=== PATIENT | female | born 1955 | race Caucasian/White ===

== ENCOUNTER → 2023-08-23 12:48 | Outpatient (REF) | payer MEDICARE, SELFPAY | LOC: RAD 12:48 | PROVIDERS: ATTENDING PHYSICIAN Family Medicine | DX: M85.89 Other specified disorders of bone density and structure, multiple sites (principal) | CPT/HCPCS: 77080 ==

== ENCOUNTER → 2023-09-16 15:59 | Outpatient (REF) | payer MEDICARE, SELFPAY ==
[2023-09-16 19:02] LABS: Urine Albumin Negative (Neg - Trace); Urine Bilirubin Negative (Negative); Urine Character Clear (Clear); Urine Color Yellow; Urine Glucose Negative (Negative); Urine Ketone Negative (Negative); Urine Leukocyte Trace (Negative); Urine Nitrite Negative (Negative); Urine Occult Blood 1+ (Negative); Urine Urobilinogen Negative (Neg - 1+)
[2023-09-16 19:14] LABS: Urine Bacteria Many (Negative)
[2023-09-16 19:15] LABS: Urine Amorphous Seen
== END ==
LOC: CLAB 15:59
PROVIDERS: ATTENDING PHYSICIAN Family Medicine
DX: N30.90 Cystitis, unspecified without hematuria (principal)
CPT/HCPCS: 81003; 81015; 87077; 87086; 87186

== ENCOUNTER → 2023-11-02 07:39 | Outpatient (REF) | payer MEDICARE, SELFPAY ==
[2023-11-02 09:03] LABS: % Basophils 0.7 % (0-2); % Eosinophils 2.8 % (0-6); % Immature Granulocytes 0.5 % (0-0.5); % Lymphocytes 11.5 % (20.5-51.1); % Monocytes 8.2 % (1.7-9.3); % Neutrophils 76.3 % (42.2-75.2); Absolute Basophils 0.1 10^3/uL (0-0.2); Absolute Eosinophils 0.2 10^3/uL (0-0.7); Absolute Monocytes 0.7 10^3/uL (0.1-0.6); Absolute Neutrophils 6.7 10^3/uL (1.4-6.5); Hematocrit 40.2 % (37.0-47.0); Hemoglobin 13.5 g/dL (12.0-16.0); Mean Corp Hgb Conc. 33.6 g/dL (33.0-37.0); Mean Corpuscular Hgb 28.4 pg (27.0-31.0); Mean Corpuscular Volume 84.5 fL (81.0-99.0); Nucleated Red Blood Cells % 0 %; Platelet Count 168 10^3/uL (130-400); Red Blood Cell Count 4.76 10^6/uL (4.20-5.40); Red Cell Dist. Width 13.5 % (11.5-14.5); White Blood Cell Count 8.7 10^3/uL (4.8-10.8)
[2023-11-02 09:27] LABS: ALT (SGPT) 25 U/L (0-35); AST (SGOT) 27 U/L (14-36); Albumin 4.2 g/dl (3.5-5.0); Alkaline Phosphatase 92 U/L (38-126); Blood Urea Nitrogen 15 mg/dl (7-17); Calcium 9.8 mg/dl (8.4-10.2); Carbon Dioxide 22 mmol/L (22-30); Chloride 106 mmol/L (98-107); Direct Bilirubin 0.2 mg/dl (0.0-0.4); Glucose 141 mg/dl (70-99); Iron 106 ug/dl (37-170); Phosphorus 4.3 mg/dl (2.5-4.5); Potassium 4.2 mmol/L (3.5-5.1); Sodium 136 mmol/L (135-145); Total Bilirubin 0.7 mg/dl (0.2-1.3); Total Cholesterol 161 mg/dl (50-199); Total Protein 7.2 g/dl (6.3-8.2); Triglyceride 189 mg/dl (10-149); Very Low Density Lipoprotein 37 mg/dl (0-30); eGFR > 60.00
[2023-11-02 09:31] LABS: Glycohemoglobin (HgbA1c) 7.6 % (4.0-5.6)
[2023-11-02 09:36] LABS: Percent Saturation 31 % (20-50); Total Iron Binding Capacity 337 ug/dl (265-497)
[2023-11-02 09:41] LABS: HDL Cholesterol 50 mg/dl; LDL Cholesterol, Calculated 74 mg/dl
[2023-11-02 09:51] LABS: Microalbumin, Random Urine 0.8 mg/dl (0.6-1.7); Microalbumin/creatinine Ratio 5.4 mg/g
[2023-11-04 09:33] LABS: Calprotectin, Fecal 199 ug/g (<=49)
== END ==
LOC: REG 07:39
PROVIDERS: ATTENDING PHYSICIAN Family Medicine; REFERRING PHYSICIAN Internal Medicine Gastroenterology
DX: E11.59 Type 2 diabetes mellitus with other circulatory complications (principal); K50.113 Crohn's disease of large intestine with fistula; E78.2 Mixed hyperlipidemia; D50.9 Iron deficiency anemia, unspecified
CPT/HCPCS: 80053; 80061; 82043; 82248; 82570; 82728; 83036; 83540; 83550; 83993; 84100; 85025

== ENCOUNTER → 2023-11-30 07:43 | Outpatient (REF) | payer MEDICARE, SELFPAY ==
[2023-11-30 09:21] LABS: C-Reactive Protein < 5.00 mg/L (0.0-10.00)
[2023-11-30 09:42] LABS: Erythrocyte Sed Rate 20 mm/hour (0-20)
[2023-11-30 09:57] LABS: Hepatitis B Surface Antigen Negative (Negative)
[2023-11-30 10:11] LABS: Vitamin B12 745 pg/ml (239-931)
[2023-11-30 10:15] LABS: Hepatitis B Core Ab, Total Negative (Negative)
[2023-11-30 11:19] LABS: Hepatitis B Surface Antibody Negative
== END ==
LOC: REG 07:43
PROVIDERS: ATTENDING PHYSICIAN Internal Medicine Gastroenterology; FAMILY PHYSICIAN Family Medicine
DX: K50.113 Crohn's disease of large intestine with fistula (principal); K50.90 Crohn's disease, unspecified, without complications
CPT/HCPCS: 36415; 82607; 82652; 82728; 85652; 86140; 86704; 86706; 87340

== ENCOUNTER → 2023-12-08 07:41 | Outpatient (REF) | payer MEDICARE, SELFPAY | LOC: MRI 3T 07:41 | PROVIDERS: ATTENDING PHYSICIAN Internal Medicine Gastroenterology; FAMILY PHYSICIAN Family Medicine | DX: K50.113 Crohn's disease of large intestine with fistula (principal) | CPT/HCPCS: 72197; 74183; A9575 ==

== ENCOUNTER → 2024-01-06 13:02 | Outpatient (REF) | payer MEDICARE, SELFPAY | LOC: RAD 13:02 | PROVIDERS: ATTENDING PHYSICIAN Family Medicine | DX: E04.1 Nontoxic single thyroid nodule (principal) | CPT/HCPCS: 76536 ==

== ENCOUNTER → 2024-02-14 11:47 | Outpatient (REF) | payer MEDICARE, SELFPAY | LOC: WDC 11:47 | PROVIDERS: ATTENDING PHYSICIAN Obstetrics & Gynecology; FAMILY PHYSICIAN Family Medicine | DX: Z12.31 Encounter for screening mammogram for malignant neoplasm of breast (principal) | CPT/HCPCS: 77063; 77067 ==

== ENCOUNTER → 2024-04-04 08:13 | Outpatient (REF) | payer MEDICARE, SELFPAY ==
[2024-04-04 09:54] LABS: Glycohemoglobin (HgbA1c) 7.3 % (4.0-5.6)
[2024-04-04 10:29] LABS: ALT (SGPT) 23 U/L (0-35); AST (SGOT) 25 U/L (14-36); Albumin 4.1 g/dl (3.5-5.0); Alkaline Phosphatase 88 U/L (38-126); Blood Urea Nitrogen 19 mg/dl (7-17); Carbon Dioxide 25 mmol/L (22-30); Chloride 103 mmol/L (98-107); Glucose 144 mg/dl (70-99); HDL Cholesterol 48 mg/dl; LDL Cholesterol, Calculated 62 mg/dl; Potassium 4.2 mmol/L (3.5-5.1); Sodium 141 mmol/L (135-145); Total Bilirubin 0.5 mg/dl (0.2-1.3); Total Cholesterol 139 mg/dl (50-199); Total Protein 6.7 g/dl (6.3-8.2); Triglyceride 148 mg/dl (10-149); Very Low Density Lipoprotein 29 mg/dl (0-30); eGFR > 60.00
[2024-04-04 11:25] LABS: TSH 3.12 uIU/ml (0.47-4.68)
== END ==
LOC: REG 08:13
PROVIDERS: ATTENDING PHYSICIAN Family Medicine
DX: E04.1 Nontoxic single thyroid nodule (principal); E11.59 Type 2 diabetes mellitus with other circulatory complications; E78.2 Mixed hyperlipidemia
CPT/HCPCS: 36415; 80053; 80061; 83036; 84439; 84443

== ENCOUNTER → 2024-09-05 08:27 | Outpatient (REF) | payer MEDICARE, SELFPAY ==
[2024-09-05 09:08] LABS: Urine Albumin Negative (Neg - Trace); Urine Bilirubin Negative (Negative); Urine Character Clear (Clear); Urine Color Yellow; Urine Glucose Negative (Negative); Urine Ketone Negative (Negative); Urine Leukocyte Negative (Negative); Urine Nitrite Negative (Negative); Urine Occult Blood 2+ (Negative); Urine Urobilinogen Negative (Neg - 1+)
[2024-09-05 09:21] LABS: % Basophils 0.9 % (0-2); % Eosinophils 2.6 % (0-6); % Immature Granulocytes 0.6 % (0-0.5); % Lymphocytes 17.2 % (20.5-51.1); % Monocytes 9.9 % (1.7-9.3); % Neutrophils 68.8 % (42.2-75.2); Absolute Basophils 0.1 10^3/uL (0-0.2); Absolute Eosinophils 0.2 10^3/uL (0-0.7); Absolute Immature Granulocytes 0.1 10^3/uL (0-0.05); Absolute Lymphocytes 1.5 10^3/uL (1.2-3.4); Absolute Monocytes 0.9 10^3/uL (0.1-0.6); Hematocrit 43.4 % (37.0-47.0); Hemoglobin 14.4 g/dL (12.0-16.0); Mean Corp Hgb Conc. 33.2 g/dL (33.0-37.0); Mean Corpuscular Hgb 28.3 pg (27.0-31.0); Mean Corpuscular Volume 85.4 fL (81.0-99.0); Mean Platelet Volume 10.2 fL (7.4-10.4); Nucleated Red Blood Cells % 0 %; Platelet Count 252 10^3/uL (130-400); Red Blood Cell Count 5.08 10^6/uL (4.20-5.40); Red Cell Dist. Width 13.5 % (11.5-14.5); White Blood Cell Count 8.8 10^3/uL (4.8-10.8)
[2024-09-05 09:32] LABS: Urine Bacteria Few (Negative); Urine White Cell 0-2 /HPF (0-5)
[2024-09-05 09:56] LABS: ALT (SGPT) 23 U/L (0-35); AST (SGOT) 25 U/L (14-36); Albumin 4.3 g/dl (3.5-5.0); Alkaline Phosphatase 89 U/L (38-126); Blood Urea Nitrogen 17 mg/dl (7-17); Calcium 9.7 mg/dl (8.4-10.2); Carbon Dioxide 26 mmol/L (22-30); Chloride 100 mmol/L (98-107); Direct Bilirubin 0.2 mg/dl (0.0-0.4); Glucose 150 mg/dl (70-99); HDL Cholesterol 57 mg/dl; Iron 112 ug/dl (37-170); LDL Cholesterol, Calculated 71 mg/dl; Sodium 136 mmol/L (135-145); Total Bilirubin 0.9 mg/dl (0.2-1.3); Total Cholesterol 169 mg/dl (50-199); Total Protein 7.1 g/dl (6.3-8.2); Triglyceride 208 mg/dl (10-149); Very Low Density Lipoprotein 41 mg/dl (0-30); eGFR > 60.00
[2024-09-05 10:06] LABS: Percent Saturation 29 % (20-50); Total Iron Binding Capacity 376 ug/dl (265-497)
[2024-09-05 10:21] LABS: TSH Reflex To Free T4 2.82 uIU/ml (0.47-4.68)
[2024-09-05 10:25] LABS: Glycohemoglobin (HgbA1c) 7.8 % (4.0-5.6)
[2024-09-05 10:35] LABS: Vitamin D, 25-OH*** 39.3 ng/mL (30-80)
[2024-09-05 10:49] LABS: Microalbumin, Random Urine < 0.6 mg/dl (0.6-1.7)
== END ==
LOC: REG 08:27
PROVIDERS: ATTENDING PHYSICIAN Internal Medicine Gastroenterology; FAMILY PHYSICIAN Family Medicine
DX: K50.113 Crohn's disease of large intestine with fistula (principal); E04.1 Nontoxic single thyroid nodule; R31.29 Other microscopic hematuria; D50.8 Other iron deficiency anemias; E11.59 Type 2 diabetes mellitus with other circulatory complications; E78.2 Mixed hyperlipidemia; E55.9 Vitamin D deficiency, unspecified
CPT/HCPCS: 36415; 80053; 80061; 81003; 81015; 82043; 82248; 82306; 82728; 83036; 83540; 83550; 83993; 84443; 85025; 86140

== ENCOUNTER 2024-10-06 06:23 | Day surgery (SDC) | payer MEDICARE, SELFPAY ==
[2024-10-06 09:45] LABS: Glucose - Point of Care 154 mg/dl (70-99)
== END 2024-10-06 11:03 | disposition home or self-care (01) ==
LOC: GI 06:23
PROVIDERS: ATTENDING PHYSICIAN Internal Medicine Gastroenterology
DX: Z12.11 Encounter for screening for malignant neoplasm of colon (principal); K64.0 First degree hemorrhoids; K57.30 Diverticulosis of large intestine without perforation or abscess without bleeding; K62.89 Other specified diseases of anus and rectum; K50.10 Crohn's disease of large intestine without complications; K63.5 Polyp of colon; K63.9 Disease of intestine, unspecified; Z86.0100 Personal history of colon polyps, unspecified
CPT/HCPCS: 44389; 88305; 82962

== ENCOUNTER → 2024-12-01 08:14 | Outpatient (REF) | payer MEDICARE, SELFPAY | LOC: RCS 08:14 | PROVIDERS: ATTENDING PHYSICIAN Internal Medicine Cardiovascular Disease; FAMILY PHYSICIAN Family Medicine | DX: I49.3 Ventricular premature depolarization (principal); I10 Essential (primary) hypertension; I77.810 Thoracic aortic ectasia; I35.1 Nonrheumatic aortic (valve) insufficiency | CPT/HCPCS: 93306 ==

== ENCOUNTER → 2024-12-05 07:52 | Outpatient (REF) | payer MEDICARE, SELFPAY ==
[2024-12-05 08:43] LABS: % Basophils 0.8 % (0-2); % Eosinophils 2.3 % (0-6); % Immature Granulocytes 0.3 % (0-0.5); % Lymphocytes 14.5 % (20.5-51.1); % Monocytes 8.1 % (1.7-9.3); Absolute Basophils 0.1 10^3/uL (0-0.2); Absolute Eosinophils 0.2 10^3/uL (0-0.7); Absolute Lymphocytes 1.3 10^3/uL (1.2-3.4); Absolute Monocytes 0.8 10^3/uL (0.1-0.6); Absolute Neutrophils 6.8 10^3/uL (1.4-6.5); Hematocrit 41.1 % (37.0-47.0); Hemoglobin 13.7 g/dL (12.0-16.0); Mean Corp Hgb Conc. 33.3 g/dL (33.0-37.0); Mean Corpuscular Hgb 28.5 pg (27.0-31.0); Mean Corpuscular Volume 85.6 fL (81.0-99.0); Nucleated Red Blood Cells % 0 %; Platelet Count 249 10^3/uL (130-400); Red Cell Dist. Width 13.7 % (11.5-14.5); White Blood Cell Count 9.2 10^3/uL (4.8-10.8)
[2024-12-05 09:08] LABS: ALT (SGPT) 19 U/L (0-35); AST (SGOT) 20 U/L (14-36); Albumin 4.2 g/dl (3.5-5.0); Alkaline Phosphatase 76 U/L (38-126); Blood Urea Nitrogen 17 mg/dl (7-17); Calcium 10.1 mg/dl (8.4-10.2); Carbon Dioxide 28 mmol/L (22-30); Chloride 106 mmol/L (98-107); Glucose 158 mg/dl (70-99); Potassium 4.2 mmol/L (3.5-5.1); Sodium 141 mmol/L (135-145); Total Bilirubin 0.9 mg/dl (0.2-1.3); Total Protein 7.1 g/dl (6.3-8.2); eGFR > 60.00
[2024-12-05 09:44] LABS: TSH Reflex To Free T4 3.02 uIU/ml (0.47-4.68)
== END ==
LOC: REG 07:52
PROVIDERS: ATTENDING PHYSICIAN Internal Medicine Cardiovascular Disease; FAMILY PHYSICIAN Family Medicine; OTHER PHYSICIAN Internal Medicine Gastroenterology
DX: I49.3 Ventricular premature depolarization (principal); I10 Essential (primary) hypertension; I77.810 Thoracic aortic ectasia; R00.2 Palpitations; I35.1 Nonrheumatic aortic (valve) insufficiency; I48.91 Unspecified atrial fibrillation; K50.113 Crohn's disease of large intestine with fistula
CPT/HCPCS: 36415; 80053; 82248; 84100; 84443; 85025; 86140

== ENCOUNTER 2024-12-08 17:43 | Emergency (ER) | payer MEDICARE, SELFPAY ==
[2024-12-08 17:44] VITALS: BP 189/112
--- NOTE | 2024-12-08 18:02 | ED.GENMED ---
History of Present Illness
General
Chief Complaint: Rectal Bleeding
Source: patient
Exam Limitations: none
Time Seen by Provider: 12/08/24 17:48
History of Present Illness
History of Present Illness:
69yoF with a history of atrial fibrillation recently started on Eliquis 3 weeks ago, Crohn's disease with colostomy, and type 2 diabetes presenting for evaluation of dark stools. Patient has noticed black stools over the past 2 days. She also had
some minor rectal bleeding. She read the medication insert on her Eliquis and called her doctor regarding her symptoms. She was advised to come to the ED for evaluation. Patient reports intermittent episodes of shortness of breath over the past
few days. She denies any dyspnea currently. She is otherwise asymptomatic and denies any chest pain, abdominal pain, dizziness, syncope.
Past History
Past History
ED Past Medical History: Other (Crohns w/ bladder fistula)
ED Past Surgical History: Bowel resection
Social History
Tobacco: Non-smoker
Personal:
Living: with family
Employment: Employed
Phy Exam
General Physical Exam
General Presentation: well appearing and no apparent distress
General Skin: warm and dry
General Habitus: normal
General Mental: alert
ENT Exam
ENT Exam: normocephalic
Gastrointestinal Exam
Gastrointestinal Exam: non tender, soft, non distended and surgical scar
External Findings: colostomy (Stool in ostomy is brown/greenish in color. Hemoccult negative. )
Neurological Exam
Neurological Exam: alert
[place] Coma Scale
Eye Opening: Spontaneous
Verbal Response: Oriented
Motor Response: Obeys Commands
GCS Total Score: 15
Skin Exam
Skin Exam: normal color and warm/dry
Psychiatric Exam
Psychiatric Exam: normal mood/affect
Course
Orders/Labs/Results
Orders:
Orders
12/08/24 18:02
Electrocardiogram (*1) Urgent
Reason for Study: Shortness of Breath
EKG- Treatment ONCE
12/08/24 18:12
Complete Blood Count/With Diff Urgent
Comprehensive Metabolic Panel Urgent
PTT Urgent
Prothrombin Time Urgent
Troponin I Urgent
Abnormal Lab Results
12/08/24
18:12
Abs Immat Gran (auto) 0.1 H 10^3/uL
(0-0.05)
Absolute Monos (auto) 0.9 H 10^3/uL
(0.1-0.6)
Immature Gran % 0.6 H %
(0-0.5)
Lymphocytes % 18.1 L %
(20.5-51.1)
Monocytes % 10.2 H %
(1.7-9.3)
BUN 22 H mg/dl
(7-17)
Glucose 155 H mg/dl
(70-99)
12/08/24 18:12
12/08/24 18:12
Vital Signs
Initial and Last Documented VS:
Initial Vital Signs
Temp Pulse Resp BP Pulse Ox
97.6 F 79 15 189/112 98
12/08/24 17:44 12/08/24 17:44 12/08/24 17:44 12/08/24 17:44 12/08/24 17:44
Last Documented Vital Signs
Temp Pulse Resp BP Pulse Ox
97.6 F 73 20 150/73 99
12/08/24 17:44 12/08/24 19:30 12/08/24 19:30 12/08/24 19:09 12/08/24 19:30
MDM/Problems Addressed
Differential Diagnosis Includes:
69yoF here with dark stools x 2 days. C/o intermittent episodes of SOB but denies any dyspnea currently. Started on Eliquis 3 weeks ago for afib. No dizziness/syncope. She is hypertensive with otherwise normal vitals. She is well appearing in no
distress. Stool in ostomy bag is brown. Stool sample obtained and hemoccult is negative. Differential diagnosis includes but is not limited to: dark stool, GI bleed, medication side effect
Initial ED plan: Check cardiac labs, coags, and EKG.
*EKG
Interpreted by ED Provider?: Yes
EKG Intrepretation Date: 12/08/24
Heart Rate: 79
Rate: normal
Rhythm: sinus and PAC's
Venus: left axis deviation
Interval: normal interval
QRS Pattern: normal QRS
Ischemia: no ischemia
*Critical Care Note
Total Time (30-74mins, 75-104mins- exclusive of procedures): Not Applicable
Update Note
Update Note:
Hemoglobin is normal at 13.8 (stable from 13.7 three days ago). Remainder of labs unremarkable. EKG shows NSR with PACs. Troponin WNL. No indication for hospitalization. Advised f/u with PCP and GI. ED return precautions reviewed. Patient in
agreement with plan and is eager to be discharged. She was discharged in stable condition.
ED Attending Note
-
Portions of this chart may have been created with voice recognition software.� Occasional wrong word or��sound alike� substitutions may have occurred due to the inherent limitations of voice recognition software.
Discharge Plan
Departure
Patient Disposition: Home (Routine Discharge)
Date of Disposition: 12/08/24
Time of Disposition: 19:45
Patient with high blood pressure during this ER visit?: Yes
Discharge Problem:
Dark stools
Instructions: Bloody Stools, Adult ED
Prescriptions:
No Action
multivitamin [Multi-Day] 1 EACH tablet
1 tab PO DAILY
aspirin 81 MG tablet,chewable
1 tab PO DAILY
cholecalciferol (vitamin D3) 2,000 UNIT tablet
2,000 unit PO DAILY
lutein 20 MG tablet
1 tab PO DAILY
Probiotic
1 cap PO DAILY
ferrous sulfate [FeroSul] 325 MG tablet
65 mg PO DAILY
biotin 1 MG tablet
1 mg PO DAILY
glucosamine leigh 2KCl-chondroit [Glucosamine Sulf-Chondroitin] 1 EACH capsule
1 ea PO DAILY
acetaminophen 325 MG tablet
650 mg PO Q4HPRN PRN (Reason: headache)
Patient Comments:
ALSO TAKES PREMED FOR REMICADE
aspirin 325 MG tablet
650 mg PO PRN PRN (Reason: pain)
infliximab [Remicade] 100 MG/10 ML recon soln
100 mg IV .EVERY 8 WEEKS
losartan 25 MG tablet
25 mg PO DAILY
metoprolol tartrate 50 MG tablet
50 mg PO BID
misoprostol 200 MCG tablet
400 mcg PO HS
ibuprofen-diphenhydramine HCl [Ibuprofen PM] 1 EACH capsule
1 ea PO PRN PRN (Reason: sleep)
Referrals:
Lovely Cintron MD [Family Provider] -
Activity Restrictions/Additional Instructions:
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 Return to the ER with any new or worsening symptoms.
Interventions
Interventions:
*Risk Screen - Suicide Last Done: 12/08/24 17:44
*General Assessment Last Done: 12/08/24 17:44
*Neglect/Abuse Screening Last Done: 12/08/24 17:44
*ED- Fall Risk Assessment Last Done: 12/08/24 18:11
*ED COVID-19 Vaccine History Last Done: 12/08/24 18:11
*Nursing Disposition Last Done: 12/08/24 19:59
QT-Kupuxj-Cxyeqddkkf Assessment Last Done: 12/08/24 18:11
ED- Cardiac Assessment Last Done: 12/08/24 18:11
ED- Pulmonary Assessment Last Done: 12/08/24 18:11
Discharge Date and Time
Discharge Date/Time: 12/08/24 19:50
Print Language: WALLIS[place]
[2024-12-08 18:09] VITALS: BMI 33.6
[2024-12-08 18:13] VITALS: BP 152/89
[2024-12-08 18:22] LABS: % Basophils 0.8 % (0-2); % Eosinophils 2.7 % (0-6); % Immature Granulocytes 0.6 % (0-0.5); % Lymphocytes 18.1 % (20.5-51.1); % Monocytes 10.2 % (1.7-9.3); % Neutrophils 67.6 % (42.2-75.2); Absolute Basophils 0.1 10^3/uL (0-0.2); Absolute Eosinophils 0.2 10^3/uL (0-0.7); Absolute Immature Granulocytes 0.1 10^3/uL (0-0.05); Absolute Lymphocytes 1.6 10^3/uL (1.2-3.4); Absolute Monocytes 0.9 10^3/uL (0.1-0.6); Absolute Neutrophils 6.1 10^3/uL (1.4-6.5); Hematocrit 41.7 % (37.0-47.0); Hemoglobin 13.8 g/dL (12.0-16.0); Mean Corp Hgb Conc. 33.1 g/dL (33.0-37.0); Mean Corpuscular Hgb 28.8 pg (27.0-31.0); Mean Corpuscular Volume 87.1 fL (81.0-99.0); Mean Platelet Volume 9.5 fL (7.4-10.4); Nucleated Red Blood Cells % 0 %; Platelet Count 288 10^3/uL (130-400); Red Blood Cell Count 4.79 10^6/uL (4.20-5.40); Red Cell Dist. Width 13.6 % (11.5-14.5)
[2024-12-08 18:33] LABS: INR 1.07; PT 14.2 Sec (11.4-14.6)
[2024-12-08 18:34] LABS: APTT 30.2 Sec (23.4-35.0)
[2024-12-08 18:37] LABS: ALT (SGPT) 20 U/L (0-35); AST (SGOT) 22 U/L (14-36); Albumin 4.4 g/dl (3.5-5.0); Alkaline Phosphatase 84 U/L (38-126); Blood Urea Nitrogen 22 mg/dl (7-17); Calcium 9.9 mg/dl (8.4-10.2); Carbon Dioxide 24 mmol/L (22-30); Chloride 107 mmol/L (98-107); Estimated Creatinine Clearance 85 ml/min; Glucose 155 mg/dl (70-99); Sodium 138 mmol/L (135-145); Total Bilirubin 0.5 mg/dl (0.2-1.3); Total Protein 7.2 g/dl (6.3-8.2); eGFR > 60.00
[2024-12-08 18:54] LABS: Troponin I 0.017 ng/ml
[2024-12-08 19:09] VITALS: BP 150/73
== END 2024-12-08 19:50 | disposition home or self-care (01) ==
LOC: EMR 17:43
PROVIDERS: Physician Assistant; EMERGENCY PHYSICIAN Emergency Medicine; FAMILY PHYSICIAN Family Medicine
DX: R19.5 Other fecal abnormalities (principal); R03.0 Elevated blood-pressure reading, without diagnosis of hypertension; K50.90 Crohn's disease, unspecified, without complications; E11.9 Type 2 diabetes mellitus without complications
CPT/HCPCS: 99284; 80053; 84484; 85025; 85610; 85730; 93005

== ENCOUNTER → 2025-02-06 07:41 | Outpatient (REF) | payer MEDICARE, SELFPAY ==
[2025-02-06 08:24] LABS: Hematocrit 39.7 % (37.0-47.0); Hemoglobin 13.2 g/dL (12.0-16.0); Mean Corp Hgb Conc. 33.2 g/dL (33.0-37.0); Mean Corpuscular Volume 85.2 fL (81.0-99.0); Nucleated Red Blood Cells % 0 %; Platelet Count 249 10^3/uL (130-400); Red Cell Dist. Width 13.6 % (11.5-14.5)
[2025-02-06 09:13] LABS: ALT (SGPT) 18 U/L (0-35); AST (SGOT) 18 U/L (14-36); Albumin 4.1 g/dl (3.5-5.0); Alkaline Phosphatase 75 U/L (38-126); Blood Urea Nitrogen 17 mg/dl (7-17); Calcium 9.6 mg/dl (8.4-10.2); Carbon Dioxide 26 mmol/L (22-30); Chloride 105 mmol/L (98-107); Glucose 148 mg/dl (70-99); HDL Cholesterol 51 mg/dl; Iron 78 ug/dl (37-170); LDL Cholesterol, Calculated 72 mg/dl; Potassium 4.2 mmol/L (3.5-5.1); Sodium 138 mmol/L (135-145); Total Protein 6.8 g/dl (6.3-8.2); Very Low Density Lipoprotein 34 mg/dl (0-30); eGFR > 60.00
[2025-02-06 09:22] LABS: Total Iron Binding Capacity 360 ug/dl (265-497)
[2025-02-06 09:47] LABS: Ferritin 94.3 ng/ml (11.1-264.0)
[2025-02-06 10:03] LABS: Glycohemoglobin (HgbA1c) 7.5 % (4.0-5.6)
== END ==
LOC: REG 07:41
PROVIDERS: ATTENDING PHYSICIAN Family Medicine
DX: E11.59 Type 2 diabetes mellitus with other circulatory complications (principal); E78.2 Mixed hyperlipidemia; D50.8 Other iron deficiency anemias
CPT/HCPCS: 36415; 80053; 80061; 82728; 83036; 83540; 83550; 85025

== ENCOUNTER → 2025-02-14 14:27 | Outpatient (REF) | payer MEDICARE, SELFPAY | LOC: WDC 14:27 | PROVIDERS: ATTENDING PHYSICIAN Family Medicine | DX: Z12.31 Encounter for screening mammogram for malignant neoplasm of breast (principal) | CPT/HCPCS: 77063; 77067 ==

== ENCOUNTER → 2025-04-11 10:45 | Outpatient (REF) | payer MEDICARE, SELFPAY | LOC: REG 10:45 | PROVIDERS: ATTENDING PHYSICIAN Internal Medicine Gastroenterology; FAMILY PHYSICIAN Family Medicine | DX: K50.113 Crohn's disease of large intestine with fistula (principal) | CPT/HCPCS: 83993 ==

== ENCOUNTER → 2025-05-15 08:39 | Outpatient (REF) | payer MEDICARE, SELFPAY ==
[2025-05-15 09:14] LABS: Hematocrit 40.3 % (37.0-47.0); Hemoglobin 13.0 g/dL (12.0-16.0); Mean Corp Hgb Conc. 32.3 g/dL (33.0-37.0); Mean Corpuscular Volume 86.3 fL (81.0-99.0); Nucleated Red Blood Cells % 0 %; Platelet Count 291 10^3/uL (130-400); Red Cell Dist. Width 13.6 % (11.5-14.5)
[2025-05-15 09:42] LABS: ALT (SGPT) 19 U/L (0-35); AST (SGOT) 19 U/L (14-36); Albumin 3.8 g/dl (3.5-5.0); Alkaline Phosphatase 66 U/L (38-126); Blood Urea Nitrogen 15 mg/dl (7-17); Calcium 9.8 mg/dl (8.4-10.2); Carbon Dioxide 25 mmol/L (22-30); Chloride 106 mmol/L (98-107); Glucose 146 mg/dl (70-99); Potassium 4.1 mmol/L (3.5-5.1); Sodium 136 mmol/L (135-145); Total Protein 6.5 g/dl (6.3-8.2); eGFR > 60.00
[2025-05-15 09:46] LABS: C-Reactive Protein < 5.00 mg/L (0.0-10.00)
== END ==
LOC: REG 08:39
PROVIDERS: ATTENDING PHYSICIAN Internal Medicine Gastroenterology
DX: K50.113 Crohn's disease of large intestine with fistula (principal)
CPT/HCPCS: 36415; 80053; 82248; 85025; 86140

== ENCOUNTER → 2025-07-06 08:04 | Outpatient (REF) | payer MEDICARE, SELFPAY ==
[2025-07-06 08:48] LABS: Hematocrit 39.6 % (37.0-47.0); Hemoglobin 13.3 g/dL (12.0-16.0); Mean Corp Hgb Conc. 33.6 g/dL (33.0-37.0); Mean Corpuscular Volume 85.0 fL (81.0-99.0); Nucleated Red Blood Cells % 0.3 %; Platelet Count 237 10^3/uL (130-400); Red Cell Dist. Width 13.4 % (11.5-14.5)
[2025-07-06 09:29] LABS: ALT (SGPT) 18 U/L (0-35); AST (SGOT) 20 U/L (14-36); Albumin 4.2 g/dl (3.5-5.0); Alkaline Phosphatase 74 U/L (38-126); Blood Urea Nitrogen 16 mg/dl (7-17); Calcium 9.5 mg/dl (8.4-10.2); Carbon Dioxide 24 mmol/L (22-30); Chloride 101 mmol/L (98-107); Glucose 128 mg/dl (70-99); HDL Cholesterol 50 mg/dl; Iron 95 ug/dl (37-170); LDL Cholesterol, Calculated 56 mg/dl; Potassium 4.2 mmol/L (3.5-5.1); Sodium 135 mmol/L (135-145); Total Protein 6.8 g/dl (6.3-8.2); Very Low Density Lipoprotein 26 mg/dl (0-30); eGFR > 60.00
[2025-07-06 09:31] LABS: Glycohemoglobin (HgbA1c) 7.2 % (4.0-5.9)
[2025-07-06 09:38] LABS: Total Iron Binding Capacity 387 ug/dl (265-497); Vitamin D, 25-OH*** 31.5 ng/mL (30-80)
[2025-07-06 09:44] LABS: C-Reactive Protein < 5.00 mg/L (0.0-10.00)
[2025-07-06 10:19] LABS: Ferritin 61.8 ng/ml (11.1-264.0)
== END ==
LOC: REG 08:04
PROVIDERS: ATTENDING PHYSICIAN Family Medicine; FAMILY PHYSICIAN Internal Medicine Gastroenterology
DX: D50.8 Other iron deficiency anemias (principal); E55.9 Vitamin D deficiency, unspecified; E78.2 Mixed hyperlipidemia; E11.59 Type 2 diabetes mellitus with other circulatory complications; K50.113 Crohn's disease of large intestine with fistula
CPT/HCPCS: 36415; 80053; 80061; 82248; 82306; 82728; 83036; 83540; 83550; 85025; 86140